=== PATIENT | female | born 1980 | race Caucasian/White ===

== ENCOUNTER 2019-10-16 15:20 | Emergency (ER) | payer OTHER ==
[2019-10-16 15:46] LABS: Hemoglobin 14.2 g/dL (12.0-16.0); Mean Corpuscular HGB CONC 33.7 g/dL (32.0-36.0); Mean Corpuscular Hemoglobin 30.9 pg (27.0-31.0); Mean Corpuscular Volume 91.7 fL (78.0-98.0); Platelet Count 223 thou/uL (130-400); RBC Distribution Width 11.9 % (11.5-14.5); Red Blood Cell (RBC) Count 4.59 mill/uL (4.20-5.40)
[2019-10-16 15:47] LABS: #Basophils 0.1 thou/uL (0.0-0.2); #Eosinphils 0.1 thou/uL (0.0-0.7); #Lymphocytes 1.8 thou/uL (1.20-3.40); #Monocytes 0.5 thou/uL (0.11-0.59); #Neutrophils 2.6 thou/uL (1.40-6.50); %Basophils 1.1 % (0.0-1.0); %Eosinophils 2.3 % (0.0-10.0); %Lymphocytes 35.2 % (21.0-51.0); %Monocytes 9.2 % (0.0-10.0); %Neutrophils 52.2 % (42.0-75.0); Mean Platelet Volume 8.1 fL (7.4-10.4)
[2019-10-16 16:09] LABS: Bacteria/HPF None Seen HPF (None Seen); Bilirubin Negative (Negative); Blood, Urine Negative (Negative); Clarity Clear (Clear); Glucose, Urine (Dipstick) Normal (Negative); Leukocyte 25 Leu/uL (Negative); Nitrite Negative (Negative); Protein, Urine (Dipstick) Negative (Neg-Trace); RBC/HPF 0-3 HPF (0-3); Squamous Epithelial 0-3 HPF (0-3); Urobilinogen Normal mg/dL (Less than 2); WBC/HPF 0-3 HPF (0-3)
[2019-10-16 16:11] LABS: ALT (SGPT) 10 U/L (8-55); AST (SGOT) 14 U/L (5-34); Albumin 4.7 g/dL (3.5-5.0); Alkaline Phosphatase 58 U/L (40-110); Anion Gap 9 mmol/L (10-20); BUN (Urea Nitrogen) 7 mg/dL (7.0-18.7); Bilirubin, Total 0.4 mg/dL (0.2-1.2); Calc. Creatinine Clearance 0 mL/min (70-130); Calcium 9.1 mg/dL (7.8-10.44); Carbon Dioxide 31 mmol/L (22-29); Chloride 103 mmol/L (98-107); Estimated GFR-MDRD Greater than 90; Globulin 2.6 g/dL (2.4-3.5); Glucose 96 mg/dL (70-105); Lipase 19 U/L (8-78); Protein, Total 7.3 g/dL (6.0-8.3); Sodium 139 mmol/L (136-145)
[2019-10-16 16:11] LABS: Pregnancy Test - Urine (BHCG) Negative (Negative); Pregu Control Background? CLEAR/WHITE (CLR/WHITE); Pregu Control Bar Appear? YES (CONTROL BAR); Specific Gravity 1.004 (1.002-1.036)
[2019-10-16] MEDS ORDERED: Ondansetron PF 4 MG/2 ML Vial ONE (17:24)
[2019-10-16] MEDS ORDERED: Ketorolac Tromethamine 30 MG/ML VIAL ONE (17:24)
[2019-10-16 17:39] LABS: BHCG - Serum Negative (NEGATIVE); Pregs Control Background? CLEAR/WHITE (CLR/WHITE); Pregs Control Bar Appear? YES (CONTROL BAR)
--- NOTE | 2019-10-16 18:02 | ULT ---
EXAM: US Gallbladder RUQ CLINICAL HISTORY: Right upper quadrant pain. COMPARISON: None. FINDINGS: Pancreas: The head of the pancreas has a normal echotexture. The remainder the pancreas is obscured by bowel gas Liver:Normal cortical echotexture. No hepatic masses or intrahepatic biliary dilatation. Contour of t he hepatic margins maintained. Right hepatic lobe measures 15 cm. Gallbladder: No sonographic evidence of cholelithiasis, gallbladder wall thickening or pericholecysti c fluid. Brunson's sign:Negative Portal Vein: Patent. Appropriate directional flow Bile ducts: 0.4 cm to 0.6 cm common bile duct diameter Right kidney: No hydronephrosis. Right kidney measures 9.5 cm in length. IMPRESSION: Common bile duct diameter at the upper limits of normal. There is concern for choledocholithiasis, co nsider HIDA scan
--- NOTE | 2019-10-16 19:07 | CT ---
EXAM: CT ABDOMEN AND PELVIS HISTORY: Right upper quadrant pain COMPARISON: None. Procedure: Multiple contiguous axial images were obtained and a CT of the abdomen and pelvis with IV contrast. C oronal reformats were performed. FINDINGS: Lower Chest: Dependent atelectatic changes Vessels: Normal caliber aorta Heart: Normal heart size Abdomen: Portal vein:Patent Gallbladder: No calcified gallstones. Normal caliber wall. Liver: Appropriate enhancement. Right hepatic lobe is enlarged measuring 18.8 cm. No enhancing masses . Pancreas: within normal limits. Spleen: within normal limits. Adrenals: within normal limits. Kidneys: Punctate nonobstructing calculi in the left intrarenal collecting system. Symmetric enhancem ent of the kidneys. No evidence of hydronephrosis. Slightly prominent left extrarenal pelvis. Peritoneum: Limited evaluation the mesentery due to decreased visceral fat. No definite mass, lymphad enopathy, free air or free fluid Bowel: Limited evaluation due to the lack of oral contrast administration. No evidence of bowel obstr uction. Ileocecal junction is unremarkable. Normal caliber appendix. Scattered fecal material in a nondistended, nondilated colon. Mesentery and Retroperitoneum: No enlarged mesenteric or retroperitoneal lymph nodes. Abdominal Wall: within normal limits. Pelvis: Reproductive Organs: Reproductive organs are unremarkable. Pelvis: Small amount of slightly complex fluid in the pelvis is nonspecific. Increased enhancement of the left adnexa likely due to ovarian venous congestion. Bladder: within normal limits. Bones: within normal limits. IMPRESSION: 1. Limited evaluation of the alimentary canal by the lack of oral contrast. No definite bowel obstruc tion. Suggestion of a normal caliber appendix in the right lower quadrant. No obvious inflammation at the cecal apex. 2. Nonobstructing punctate 1 to 2 mm calculi in the left renal pelvis. Bilaterally no definite obstru ctive uropathy. 3. Mild hepatomegaly. 4. Increased vascularity in the left adnexa likely due to ovarian venous congestion. 5. Slightly complex fluid in the pelvis may be physiologic. Correlate clinically. Transcribed Date/Time: 10/16/2019 7:23 PM
== END 2019-10-16 19:48 | disposition home or self-care (01) ==
LOC: ERS 15:20
DX: R10.11 Right upper quadrant pain (principal)
CPT/HCPCS: 36415; 74177; 76705; 80053; 81003; 81015; 81025; 82550; 83690; 84703; 85025; 93005; 96361; 96374; 96375; J1885; J2405

== ENCOUNTER 2019-11-16 07:36 | Outpatient (CLI) | payer OTHER ==
--- NOTE | 2019-11-16 10:53 | NM ---
HEPATOBILIARY SCAN: HISTORY:Right upper quadrant pain, nausea. Other specified diseases of biliary tract RADIOPHARMACEUTICAL: 5.3 mCi Technetium 99m Mebrofenin injected intravenously FINDINGS: There is normal tracer extraction by the liver with normal excretion into the biliary tracts and smal l bowel loops and normal filling of the gallbladder. The calculated gallbladder ejection fraction following an oral fatty meal measures 68%. IMPRESSION:Normal exam.
== END 2019-11-16 07:37 | disposition home or self-care (01) ==
LOC: NM 07:36
PROVIDERS: ATTEND Family Medicine
DX: K83.8 Other specified diseases of biliary tract (principal)
CPT/HCPCS: 78227; A9537